=== PATIENT | male | born 1990 | race Caucasian/White ===

== ENCOUNTER 2021-08-17 06:02 | Emergency (ER) | payer OTHER ==
[2021-08-17 07:00] LABS: BASOPHIL 0.4 % (0-2); EOSINOPHIL 2.9 % (0-5); HCT 46.7 % (42.0-52.0); HGB 16.4 g/dl (13.2-18.0); LYMPHOCYTE 18.2 % (15-48); MCH 30.7 pg (25.0-31.0); MCHC 35.1 g/dL (32.0-36.0); MCV 87.3 fL (78.0-100.0); MONOCYTE 7.4 % (0-12); MPV 9.2 fL (6.0-9.5); NEUTROPHIL 70.7 % (41-80); NRBC 0; PLT 211 K/uL (150-400); RBC 5.35 M/uL (4.70-6.00); RDW 12.2 % (11.5-14.0); WBC 9.3 K/uL (4.0-10.5)
[2021-08-17 07:25] LABS: ALBUMIN 4.5 g/dL (3.4-5.0); BILIRUBIN - TOTAL 0.3 mg/dL (0.2-1.0); BUN/CREAT RATIO (CALC) 16.7 RATIO; CREATININE 0.78 mg/dL (0.67-1.17); GLOBULIN (CALCULATION) 3.4 g/dL; LACTIC ACID 2.5 mmol/L (0.4-1.9); POTASSIUM 4.2 mmol/L (3.5-5.1); TOTAL PROTEIN 7.9 g/dL (6.4-8.2)
[2021-08-17 07:52] LABS: BILIRUBIN NEGATIVE (NEGATIVE); BLOOD TRACE-INTACT Ery/uL (NEGATIVE); CLARITY CLEAR (CLEAR); COLOR YELLOW (YELLOW); GLUCOSE (U) NORMAL (NORMAL); LEUKOCYTES NEGATIVE Leu/uL (NEGATIVE); NITRITE NEGATIVE (NEGATIVE); PROTEIN TRACE (LOW) mg/dL (NEGATIVE); SPECIFIC GRAVITY 1.025 (1.001-1.030); UROBILINOGEN 0.2 mg/dL (0.2-1.0)
[2021-08-17 07:59] LABS: MUCOUS MODERATE; SQUAMOUS EPITHELIAL CELLS RARE; URINARY WBC RARE
[2021-08-17] MEDS ORDERED: ONDANSETRON ODT4 MG PO (09:47)
[2021-08-17] MEDS ORDERED: BENTYL10 MG PO (09:47)
== END 2021-08-17 10:20 | disposition home or self-care (01) ==
LOC: FER 06:02
PROVIDERS: Emergency Medicine Emergency Medical Services
DX: N28.1 Cyst of kidney, acquired (principal)
CPT/HCPCS: 36415; 80053; 81001; 83605; 84145; 85025; J1885; J2405; J7030; Q0162; Q9967